=== PATIENT | male | born 1950 | race Caucasian/White ===

== ENCOUNTER 2017-04-18 08:30 | Emergency (ER) | payer MEDICARE ==
[~2017-04-18] VITALS: Ht 175.3 cm; Wt 77.3 kg
[~2017-04-18 08:30] MED LIST: AZIT250T9 PO; LORA2TAB2 PO; MULT-685 PO
[2017-04-18] MEDS ORDERED: NAPR220C15 PO (09:21)
[2017-04-18] MEDS ORDERED: HYDROCODONE/ACETAMINOPHEN 5-325 MG TABLET PO ONE (10:30)
[2017-04-18 13:00] VITALS: BP 177/99
== END 2017-04-18 13:14 | disposition home or self-care (01) ==
LOC: EMS 08:31
DX: S22.089A Unspecified fracture of T11-T12 vertebra, initial encounter for closed fracture (principal); F12.90 Cannabis use, unspecified, uncomplicated; Z87.891 Personal history of nicotine dependence; W18.39XA Other fall on same level, initial encounter; Y93.89 Activity, other specified; Y92.89 Other specified places as the place of occurrence of the external cause; Y99.8 Other external cause status
CPT/HCPCS: 72131; 99284

== ENCOUNTER 2020-07-06 17:02 | Emergency (ER) | payer MEDICARE, MEDICAID ==
[~2020-07-06] VITALS: Ht 175.3 cm; Wt 62.2 kg
[~2020-07-06 17:02] MED LIST changes: -AZIT250T9 PO; +LORA-1001 PO; -LORA2TAB2 PO; +NAPR220C15 PO
[2020-07-06 18:24] VITALS: BP 133/72
[2020-07-06 18:38] LABS: BASOPHILS % (AUTO) 0.4 % (0.0-2.0); EOSINOPHILS % (AUTO) 1.8 % (1.0-6.0); HEMATOCRIT 37.2 % (41-53); HEMOGLOBIN 11.9 g/dL (13.5-17.5); LYMPHOCYTES # (AUTO) 1.5 K/uL (1.0-4.8); LYMPHOCYTES % (AUTO) 11.6 % (22.0-44.0); MEAN CORPUSCULAR HEMOGLOBIN 27.3 pg (26.0-34.0); MEAN CORPUSCULAR VOLUME 85 fL (80-100); MONOCYTES # (AUTO) 0.7 K/uL (0.1-1.0); MONOCYTES % (AUTO) 5.2 % (2.0-9.0); NEUTROPHILS # (AUTO) 10.3 K/uL (1.8-7.7); PLATELET COUNT (AUTO) 512 K/uL (150-450); RED BLOOD CELL COUNT(AUTO) 4.37 MIL/uL (4.50-5.90); RED CELL DISTRIBUTION WIDTH 16.3 % (11.5-14.5)
[2020-07-06 18:46] LABS: ANION GAP 6 mmol/L (8-16); CALCIUM, TOTAL 9.4 mg/dL (8.8-10.5); CARBON DIOXIDE 33 mmol/L (22-29); CHLORIDE 104 mmol/L (98-107); CREATININE 0.75 mg/dL (0.60-1.30); GLUCOSE,RANDOM 116 mg/dL (70-110); POTASSIUM 3.5 mmol/L (3.5-5.1); SODIUM SERUM 143 mmol/L (136-145); UREA NITROGEN, BLOOD 15 mg/dL (7-18)
[2020-07-06 18:48] LABS: GLOMERULAR FILTR. RATE CALC > 60 mL/min (>60)
== END 2020-07-06 20:45 | disposition home or self-care (01) ==
LOC: EMS 17:04
DX: R55 Syncope and collapse (principal); R53.1 Weakness; F12.90 Cannabis use, unspecified, uncomplicated; Z87.891 Personal history of nicotine dependence
CPT/HCPCS: 80048; 85025; 93005; 99284

== ENCOUNTER 2020-08-22 15:14 | Emergency (ER) | payer MEDICARE, OTHER ==
[~2020-08-22] VITALS: Ht 172.7 cm; Wt 59.1 kg
[2020-08-22 16:38] LABS: BASOPHILS % (AUTO) 0.8 % (0.0-2.0); EOSINOPHILS % (AUTO) 0.9 % (1.0-6.0); HEMATOCRIT 40.2 % (41-53); HEMOGLOBIN 12.8 g/dL (13.5-17.5); LYMPHOCYTES # (AUTO) 2.2 K/uL (1.0-4.8); LYMPHOCYTES % (AUTO) 19.1 % (22.0-44.0); MEAN CORPUSCULAR HEMOGLOBIN 26.4 pg (26.0-34.0); MEAN CORPUSCULAR HGB CONC 31.9 G/dL (31.0-37.0); MEAN CORPUSCULAR VOLUME 83 fL (80-100); MONOCYTES # (AUTO) 0.5 K/uL (0.1-1.0); MONOCYTES % (AUTO) 4.3 % (2.0-9.0); NEUTROPHILS # (AUTO) 8.8 K/uL (1.8-7.7); NEUTROPHILS % (AUTO) 74.9 % (40.0-70.0); PLATELET COUNT (AUTO) 487 K/uL (150-450); RED BLOOD CELL COUNT(AUTO) 4.85 MIL/uL (4.50-5.90); RED CELL DISTRIBUTION WIDTH 15.8 % (11.5-14.5)
[2020-08-22 16:43] LABS: ALANINE AMINOTRANSFERASE 12 U/L (12-78); ALBUMIN 2.6 g/dL (3.4-5.0); ALKALINE PHOSPHATASE 97 U/L (46-116); ANION GAP 9 mmol/L (8-16); ASPARTATE AMINOTRANSFERASE 12 U/L (15-37); BILIRUBIN,TOTAL 0.5 mg/dL (0.1-1.0); CALCIUM, TOTAL 9.5 mg/dL (8.8-10.5); CARBON DIOXIDE 36 mmol/L (22-29); CHLORIDE 101 mmol/L (98-107); CREATININE 0.54 mg/dL (0.60-1.30); GLUCOSE,RANDOM 118 mg/dL (70-110); LIPASE 177 U/L (73-393); SODIUM SERUM 146 mmol/L (136-145); TOTAL PROTEIN, SERUM 7.7 g/dL (6.4-8.2); UREA NITROGEN, BLOOD 10 mg/dL (7-18)
[2020-08-22 16:44] LABS: INR 1.1 (0.9-1.1); PROTHROMBIN TIME 11.3 SEC (9.4-11.6)
[2020-08-22 16:47] LABS: GLOMERULAR FILTR. RATE CALC > 60 mL/min (>60); POTASSIUM 2.6 mmol/L (3.5-5.1)
[2020-08-22] MEDS ORDERED: POTASSIUM CHLORIDE 10% 40 MEQ/30 ML LIQUID UDCUP PO ONE ×2 (17:30→17:50)
[2020-08-22] MEDS ORDERED: BACITRACIN 0.9 GM PACKET OINTMENT TP ONE (17:30)
[2020-08-22 18:47] VITALS: BP 117/80
== END 2020-08-22 20:07 | disposition home or self-care (01) ==
LOC: EMS 15:14
DX: E87.6 Hypokalemia (principal); R55 Syncope and collapse
CPT/HCPCS: 36415; 80053; 82271; 82962; 83690; 84484; 85025; 85610; 85730; 93005; 99284; G0480